=== PATIENT | male | born 1950 | race Caucasian/White ===

== ENCOUNTER 2025-08-21 12:16 | Outpatient (OUT) | payer BC, SELFPAY ==
--- OUTSIDE RECORDS SUMMARY | 2025-08-21 12:27 | XMS_ITS | Clinical Summary ---
Author Organization [facility] Healthcare Address [address] [place] [address] Care Team Providers Care Motor Runner Name Role Phone Diana Rosado MD Primary Care Provider [phone] Allergies No known active allergies Medications MedicationSigDispense QuantityRefillsLast FilledStart DateEnd DateStatus magnesium 250 MG tablet Take 1 tablet by mouth in the morning.Active Krill Oil 500 MG capsule Take 1 capsule by mouth in the morning.Active Multiple Vitamin (MULTI VITAMIN DAILY PO) Take 1 tablet by mouth in the morning and 1 tablet before bedtime.Active cholecalciferol (Vitamin D-3) 50 MCG (2000 UT) tablet Take 2,000 Units by mouth DailyActive Multiple Vitamins-Minerals (PreserVision AREDS 2) capsule 3Active Calcium Citrate-Vitamin D (CITRACAL + D PO) Take 600 mg by mouth DailyActive losartan (Cozaar) 100 MG tablet Indications:Essential hypertensionTake 1 tablet (100 mg) by mouth Daily 90 tablet 4Active hydroCHLOROthiazide (HYDRODiuril) 12.5 MG tablet Indications:Essential hypertensionTake 1 tablet (12.5 mg) by mouth Daily 100 tablet 5Active metoprolol succinate XL (Toprol-XL) 25 MG 24 hr tablet Indications:Essential hypertensionTake 1 tablet (25 mg) by mouth Daily Do not crush or chew. Take in the am 90 tablet 5Active bacitracin 500 UNIT/GM ointment Indications:Nasal soreApply topically in the morning and before bedtime. 14 g 5Active metoprolol succinate XL (Toprol XL) 50 MG 24 hr tablet Indications:Essential hypertensionTake 1 tablet (50 mg) by mouth in the evening Do not crush or chew. 90 tablet 5Active Active Problems ProblemNoted DateDiagnosed DateHistory of rectal vpzbqx4805/12/2023Family history of colon tyisgq5005/12/2023Essential rirnncueuggh08/19/2974Qjspluswawr01/19/2023 Encounters DateTypeDepartmentCare KgssQjmpgoxayxo16/29/2025Telephone [facility] [address] [place] [address] Diana Rosado MD from Last 3 Months Immunizations ImmunizationAdministration DatesNext DueInfluenza, High Dose Seasonal, Preservative Free07/31/2019,08/25/2018,08/04/2017Influenza, High-dose Seasonal, Quadrivalent, Preservative Free08/16/2023,10/02/2021Influenza, Seasonal, Quadrivalent, Wbvovlfbzv18/24/2022,07/26/2020Influenza, Split (incl. purified surface antigen)10/15/2015Influenza, Omsrowsboaa99/24/2022,10/02/2021,07/26/2020 ,07/31/2019,08/25/2018Influenza, seasonal, injectable, preservative free 07/25/2020Moderna Bivalent Booster Htzarfbsner47/30/2022neumococcal Conjugate PCV 13010/27/2018Pneumococcal Polysaccharide [id number]-GxQ-5, Akjwsxjowbb26/30/2022 Family History Medical HistoryRelationNameCommentsHypertensionMotherRelationNameStatusComments FatherDeceasedMotherAlive Social History Tobacco UseTypesPacks/DayYears UsedDateSmoking Tobacco: NeverSmokeless Tobacco: Never Tobacco Cessation:Counseling Given: Not Answered Alcohol UseStandard Drinks/WeekCommentsNever0 (1 standard drink = 0.6 oz pure alcohol)B1300 Health LiteracyAnswerDate RecordedHow often do you need to have someone help you when you read instructions, pamphlets, or other written material from your doctor or pharmacy?Never08/31/2024Humiliation, Afraid, Rape, and Kick questionnaireAnswerDate RecordedWithin the last year, have you been afraid of your partner or ex-partner?No04/05/2023Within the last year, have you been humiliated or emotionally abused in other ways by your partner or ex-partner?No04/05/2023Within the last year, have you been kicked, hit, slapped, or otherwise physically hurt by your partner or ex-partner?No04/05/2023Within the last year, have you been raped or forced to have any kind of sexual activity by your partner or ex-partner?No04/05/2023Social Connection and Isolation Panel AnswerDate RecordedIn a typical week, how many times do you talk on the phone with family, friends, or neighbors?Twice a week08/31/2024How often do you get together with friends or relatives?Once a week08/31/2024How often do you attend jehovah's witness or voodoo services?Never08/31/2024o you belong to any clubs or organizations such as jehovah's witness groups, unions, fraternal or athletic groups, or school groups?No08/31/2024How often do you attend meetings of the clubs or organizations you belong to?Never08/31/2024re you , , , , never , or living with a partner?Dyntlew7608/31/2024UDIT-C AnswerDate RecordedQ1: How often do you have a drink containing alcohol?Never 08/31/2024Q2: How many drinks containing alcohol do you have on a typical day when you are drinking?Patient does not drink08/31/2024Q3: How often do you have six or more drinks on one occasion?Never08/31/2024Overall Financial Resource Strain (CARDIA)AnswerDate RecordedHow hard is it for you to pay for the very basics like food, housing, medical care, and heating?Not hard at all08/31/2024 PHQ-2AnswerDate RecordedPatient Health Questionnaire-2 Boxuj305Finmountainstar healthcare [place] of Occupational Health - Occupational Stress QuestionnaireAnswerDate RecordedDo you feel stress - tense, restless, nervous, or anxious, or unable to sleep at night because yourmind is troubled all the time - these days?Only a otfmnj0708/31/2024Exercise Vital SignAnswerDate RecordedOn average, how many days per week do you engage in moderate to strenuous exercise (like a brisk walk)?4 days08/31/2024On average, how many minutes do you engage in exercise at this level?30 min08/31/2024Hunger Vital SignAnswerDate RecordedWithin the past 12 months, you worried that your food would run out before you got the money to buy more.Never true08/31/2024Within the past 12 months, the food you bought just didn't last and you didn't have money to get more.Never true08/31/2024RAPARE - TransportationAnswerDate RecordedIn the past 12 months, has lack of transportation kept you from medical appointments or from getting medications?No 08/31/2024In the past 12 months, has lack of transportation kept you from meetings, work, or from getting things needed for daily living?No08/31/2024 Housing Stability Vital SignAnswerDate RecordedIn the last 12 months, was there a time when you were not able to pay the mortgage or rent on time?No04/05/2023In the last 12 months, how many places have you lived?In the last 12 months, was there a time when you did not have a steady place to sleep or slept in [facility] (including now)?No04/05/2023Housing Stability Vital SignAnswerDate RecordedIn the last 12 months, was there a time when you were not able to pay the mortgage or rent on time?No08/31/2024In the past 12 months, how many times have you moved where you were living?t any time in the past 12 months, were you homeless or living in a senior living (including now)?No08/31/2024Sex and Gender InformationValueDate RecordedSex Assigned at BirthNot on fileLegal PofVgjc7601/06/2023 7:27 PM EDTGender IdentityNot on fileSexual OrientationNot on file Last Filed Vital Signs Vital SignReadingTime TakenCommentsBlood Xlwpdxkj935/76003/15/2025 2:48 PM EDT Auvww185203/15/2025 2:48 PM ELVMvzlrihivie09.7 ??C (98 ??F)03/15/2025 2:48 PM EDT Respiratory Rate--Oxygen Pnpititdks36%03/15/2025 2:48 PM EDTInhaled Oxygen Concentration--Foykdm99.5 kg (195 lb 3.2 oz)03/15/2025 2:48 PM KXTUnqupt278.2 cm (5' 7 )03/15/2025 2:48 PM EDTBody Mass Index30.57003/15/2025 2:48 PM EDT Plan of Treatment Health MaintenanceDue DateLast DoneCommentsCT Sqoxedrrlrtj1950FIT-DNA 1950FIT1950FOBT1950 0044Aixxkueqqowak1950Diabetes: Retinopathy Gnlcatsul51/15/1961Diabetes: Hemoglobin A1C/02/2025, 09/05/2024, 02/28/2024, Additional history existsInfluenza Vaccine (#1) 509/, 08/16/2023, 08/17/2022, Additional history existsDiabetes: Urine Protein Ekubkcewb23/10/830511/2446Ensodrcmnup85, 03/01/2023, 09/02/2017, Additional history existsColorectal Cancer Screening 3Pneumococcal Vaccine: 65+ BcmwiPsgetunkw18/08/2020, 10/27/2018 Procedures Procedure NamePriorityDate/TimeAssociated DiagnosisCommentsMICROALBUMIN / CREATININE URINE LOEMCGyxkjjz14/10/2025 11:14 AM EST Type 2 diabetes mellitus without complication, without long-term current use of insulin (HCC) Essential hypertension POCT GLYCATED HEMOGLOBIN, TVJWGQguzvmt72/05/2025 12:39 PM EST Type 2 diabetes mellitus without complication, without long-term current use of insulin (HCC) HIVWYVTDPKEYahdonr70/05/2023 12:00 PM EDT from Last 3 Months or Most Recently Relevant to Health Maintenance Results * Microalbumin / creatinine urine ratio (12/04/2024 11:14 AM EST)ComponentValue Ref RangeTest MethodAnalysis TimePerformed AtPathologist SignatureCREATININE, RANDOM TGXQM1182 - 320 mg/dLQUESTALBUMIN, URINE0.4See Note: mg/dLQUESTComment: Reference Range: Reference Range Not established ALBUMIN/CREATININE RATIO, RANDOM URINE5<30 mg/g creatQUESTComment: The ADA defines abnormalities in albumin excretion as follows: Albuminuria Category ?Result (mg/g creatinine) Normal to Mildly increased <30 Moderately increased ? 30-299 Severely increased > OR = 300 The ADA recommends that at least two of three specimens collected within a 3-6 month period be abnormal before considering a patient to be within a diagnostic category. Specimen (Source)Anatomical Location / LateralityCollection Method / Volume Collection TimeReceived TimeUrineUrine specimen obtained by clean catch procedure / Hylgqhj1512/04/2024 11:14 AM EST12/05/2024 1:36 PM EST Narrative [facility] - 12/06/2024 1:22 PM EST FASTING:UNKNOWN FASTING: UNKNOWN Resulting Agency Comment Performing Organization Information ?Site ID: [id number] ?Name: [facility] ?Address: [address] [place] [id number] ?Director: Allen Sosa MD Authorizing ProviderResult TypeResult Ran Rosado MDNORTHWEST KANSAS SURG[facility] URINE ORDERABLESFinal ResultPerforming OrganizationAddressCity/State/ZIP CodePhone Number [facility] * POCT glycated hemoglobin, total docked device (11/29/2024 12:39 PM EST) ComponentValueRef RangeTest MethodAnalysis TimePerformed AtPathologist SignatureHemoglobin A1C5.2Specimen (Source)Anatomical Location / Laterality Collection Method / VolumeCollection TimeReceived NmznVmjdf92/05/2025 12:39 PM EST Narrative Authorizing ProviderResult TypeResult Ran Rosado MDPOINT OF CARE TEST ENTER/EDIT ORDERABLESFinal Result * Colonoscopy (03/01/2023 12:00 PM EDT)Anatomical RegionLateralityModality EndoscopySpecimen (Source)Anatomical Location / LateralityCollection Method / VolumeCollection TimeReceived Time03/01/2023 12:00 PM EDT Narrative 03/11/2023 12:00 PM EDT PERFORMED AT [facility] LOCATION:[id number] SEE REPORT Procedure Note CONVERSION, GENERIC - 03/13/2023 PERFORMED AT [facility] LOCATION:[id number] SEE REPORT Authorizing ProviderResult TypeResult StatusJennifer D Allsop DOENDOSCOPY PROCEDURE ORDERABLESFinal Result from Last 3 Months or Most Recently Relevant to Health Maintenance Insurance Care Teams Team MemberRelationshipSpecialtyStart DateEnd Date Diana Rosado MD [address] [place] [address] [facility]
--- OUTSIDE RECORDS SUMMARY | 2025-08-21 12:27 | XMS_ITS | Clinical Summary ---
Author Organization [facility] Address [address] [place] [address] Phone Care Team Providers Care Labor Economics Professor Name Role Phone Unavailable Primary Care Provider Unavailabl e Encounters DateTypeDepartmentCare HwigJquaukremdv13/11/2025Orders Only [facility] [address] [place] [address] José Miguel Olvera, DO from Last 3 Months Social History Tobacco UseTypesPacks/DayYears UsedDateSmoking Tobacco: Never AssessedSex and Gender InformationValueDate RecordedSex Assigned at BirthNot on fileLegal Sex Male09/18/2022 1:31 PM ESTGender IdentityNot on fileSexual OrientationNot on file Plan of Treatment Not on file Procedures Procedure NamePriorityDate/TimeAssociated DiagnosisCommentsNON-[facility] HIE UA WITH CULT CHGMCkbdenr38/11/2025 1:51 PM EDT NON-[facility] HIE UA WITH CULT RFLX PBBwbtmna57/11/2025 1:51 PM EDT from Last 3 Months Results * NON-[facility] HIE UA WITH CULT RFLX SP (08/04/2025 1:51 PM EDT)ComponentValueRef RangeTest MethodAnalysis TimePerformed AtPathologist SignatureNON-UH HIE UA Spec DescClean CatchFISHER MEDSTAR GOOD SAMARITAN HOSPITALpecimen (Source)Anatomical Location / LateralityCollection Method / VolumeCollection TimeReceived Time [facility]- Urine08/04/2025 1:51 PM EDT Narrative Authorizing ProviderResult TypeResult StatusJosé Miguel Olvera DOLAB BLOOD ORDERABLES Final ResultPerforming OrganizationAddressCity/State/ZIP CodePhone Number [facility] [address] [place] [address], [place] * (ABNORMAL) NON-[facility] HIE UA WITH CULT RFLX (08/04/2025 1:51 PM EDT)ComponentValue Ref RangeTest MethodAnalysis TimePerformed AtPathologist SignatureDOSHER MEMORIAL [facility] HIE UA ColorDark-Brown(A)YellowCLEVELAND CLINIC AKRON GENERAL LODI HOSPITALComment:Microscopic readings are only performed on those samples that meet specific criteria set forth by [facility] Laboratory.NON-[facility] HIE UA ClarityEx.Turbid (A)ClearWYANDOT MEMORIAL [facility] HIE UA Spec Grav1.0091.005 - 1.030 [facility] UA pH5.55.0 - 9.0[facility] UA Protein1+(A)Negative mg/dLBLUFFTON HOSPITALE UA GlucoseNegativeNegative mg/dLWADSWORTH-RITTMAN HOSPITALE UA KetonesNegativeNegative mg/dLCRYSTAL [facility]INIC [facility] UA Bili NegativeNegative mg/dLCRYSTAL CLINIC [facility] UA Blood3+(A) Negative mg/dLWADSWORTH-RITTMAN HOSPITALE UA NitriteNegativeNegative mg/dLCRYSTAL CLINIC ORTHOP[facility] UA UrobilinogenNegativeNegative mg/dLWADSWORTH-RITTMAN HOSPITALE UA Leuk Est25 Humaira/uLNegative CD:[id number] CLINIC ORTHOPEDIC CENTER UA RBC>75(A)0 - 3 CD:[id number] CLINIC ORTHOPEDIC CENTER UA MUCOUSNegativeNegative CD:[id number] MEDICAL TRIHEALTH REHABILITATION HOSPITALpecimen (Source)Anatomical Location / LateralityCollection Method / VolumeCollection TimeReceived TimeMUSCOGEE Lab- Urine08/04/2025 1:51 PM EDT Narrative Authorizing ProviderResult TypeResult StatusJosé Miguel TALLEY BLOOD ORDERABLES Final ResultPerforming OrganizationAddressCity/State/ZIP CodePhone Number [facility] [address] [place] [address], [place] from Last 3 Months
--- NOTE | 2025-08-21 12:32 | ECG_ITS ---
[facility] Test Date: 2025-08-21 Pat Name: MARY COLLIER Department: Room: - Gender: Male Detail Assembler: : 1950 Requested By: CAROLINA SORIANO Order Number: [id number] Reading MD: LILIAN JON Measurements Intervals [place] Rate: 53 P: 41 KS: 145 QRS: 31 QRSD: 119 T: 49 QT: 425 QTc: 399 Interpretive Statements SINUS BRADYCARDIA MODERATE INTRAVENTRICULAR CONDUCTION DELAY [110+ ms QRS DURATION] No previous ECG available for comparison Electronically Signed On 08-21-2025 13:14:35 EDT by LILIAN JON
[2025-08-21 15:17] LABS: INR 1.06; Partial Thromboplastin Time 31.3 sec (22.3-36.2); Prothrombin Time 11.2 sec (9.0-11.6)
== END 2025-08-21 12:17 | disposition home or self-care (01) ==
PROVIDERS: Visit Provider Urology
DX: Z01.818 Encounter for other preprocedural examination (principal); N40.1 Benign prostatic hyperplasia with lower urinary tract symptoms
CPT/HCPCS: 85610; 85730; 93005

== ENCOUNTER 2025-08-30 12:35 | Day surgery (SDC) | payer BC, MEDICARE, SELFPAY ==
[2025-08-21 13:04] VITALS: BP 153/95; PULSE 60; TEMP 36.4; O2SAT 96; BMI 31.0
[2025-08-30] VITALS (8 sets, daily range): BP systolic 132–153; BP diastolic 72–85; PULSE 60–84; TEMP 36.4–36.6; O2SAT 92–98; BMI 30.3
--- OUTSIDE RECORDS SUMMARY | 2025-08-30 12:39 | XMS_ITS | Clinical Summary ---
Author Organization [facility] Address [address] [place] [address] Phone Care Team Providers Care Leakage Tester Name Role Phone Unavailable Primary Care Provider Unavailabl e Encounters DateTypeDepartmentCare DblhFgdxamjmotb34/11/2025Orders Only [facility] [address] [place] [address] José Miguel Olvera, DO from Last 3 Months Social History Tobacco UseTypesPacks/DayYears UsedDateSmoking Tobacco: Never AssessedSex and Gender InformationValueDate RecordedSex Assigned at BirthNot on fileLegal Sex Male09/18/2022 1:31 PM ESTGender IdentityNot on fileSexual OrientationNot on file Plan of Treatment Not on file Procedures Procedure NamePriorityDate/TimeAssociated DiagnosisCommentsNON-[facility] HIE UA WITH CULT MLHRPknapkd14/11/2025 1:51 PM EDT NON-[facility] HIE UA WITH CULT RFLX DPNhxzaub23/11/2025 1:51 PM EDT from Last 3 Months Results * NON-[facility] HIE UA WITH CULT RFLX SP (08/04/2025 1:51 PM EDT)ComponentValueRef RangeTest MethodAnalysis TimePerformed AtPathologist SignatureNON-[facility] HIE UA Spec DescClean CatchFISHER R [facility] TRAUMA CENTERpecimen (Source)Anatomical Location / LateralityCollection Method / VolumeCollection TimeReceived Time [facility] Lab- Urine08/04/2025 1:51 PM EDT Narrative Authorizing ProviderResult TypeResult StatusJosé Miguel Olvera DOLAB BLOOD ORDERABLES Final ResultPerforming OrganizationAddressCity/State/ZIP CodePhone Number [facility] [address] [place] [address], [place] * (ABNORMAL) NON-[facility] HIE UA WITH CULT RFLX (08/04/2025 1:51 PM EDT)ComponentValue Ref RangeTest MethodAnalysis TimePerformed AtPathologist SignatureCOUNTS INCLUDE 234 [facility]EDS AT THE [facility] HIE UA ColorDark-Brown(A)YellowOHIOHEALTH HARDIN MEMORIAL HOSPITALComment:Microscopic readings are only performed on those samples that meet specific criteria set forth by [facility].NON-[facility] HIE UA ClarityEx.Turbid (A)ClearMAGRUDER MEMORIAL [facility] HIE UA Spec Grav1.0091.005 - 1.030 [facility] UA pH5.55.0 - 9.0[facility] UA Protein1+(A)Negative mg/dLOHIO STATE HEALTH SYSTEME UA GlucoseNegativeNegative mg/dLKINDRED [facility] UA KetonesNegativeNegative mg/dLBRECKSVILLE VA / [facility] UA Bili NegativeNegative mg/dLBRECKSVILLE VA / [facility] UA Blood3+(A) Negative mg/dLKINDRED HOSPITAL [facility] UA NitriteNegativeNegative mg/dLBRECKSVILLE VA / [facility] UA UrobilinogenNegativeNegative mg/dLKINDRED HOSPITAL [facility]AE UA Leuk Est25 Humaira/uLNegative CD:[id number] VA / [facility] UA RBC>75(A)0 - 3 CD:[id number] VA / CRILLE [facility]OSPITAL UA MUCOUSNegativeNegative CD:[id number] HOSPITALpecimen (Source)Anatomical Location / LateralityCollection Method / VolumeCollection TimeReceived TimeHILLCREST HOSPITAL SOUTH Lab- Urine08/04/2025 1:51 PM EDT Narrative Authorizing ProviderResult TypeResult StatusJosé Miguel TALLEY BLOOD ORDERABLES Final ResultPerforming OrganizationAddressCity/State/ZIP CodePhone Number [facility] [address] [place] [address], [place] from Last 3 Months
--- OUTSIDE RECORDS SUMMARY | 2025-08-30 12:39 | XMS_ITS | Clinical Summary ---
Author Organization [facility] Healthcare Address [address] [place] [address] Care Team Providers Care Press Pipe Inspector Name Role Phone Diana Rosado MD Primary Care Provider [phone] Allergies No known active allergies Medications MedicationSigDispense QuantityRefillsLast FilledStart DateEnd DateStatus magnesium 250 MG tablet Take 1 tablet by mouth in the morning.Active Krill Oil 500 MG capsule Take 1 capsule by mouth in the morning.Active Multiple Vitamin (MULTI VITAMIN DAILY PO) Take 1 tablet by mouth in the morning and 1 tablet before bedtime.Active cholecalciferol (Vitamin D-3) 50 MCG (1999 UT) tablet Take 2,000 Units by mouth [...] Active Problems ProblemNoted DateDiagnosed DateHistory of rectal lbjyon9805/12/2023Family history of colon bdgqzp6105/12/2023Essential rlcgagjikbvu60/19/5444Vsxjttobvuo17/19/2023 Encounters DateTypeDepartmentCare KclvUkamjlzqdam31/29/2025Telephone [facility] [address] [place] [address] Diana Rosado MD from Last 3 Months Immunizations ImmunizationAdministration DatesNext DueInfluenza, High Dose Seasonal, Preservative Free07/31/2019,08/25/2018,08/04/2017Influenza, High-dose Seasonal, Quadrivalent, Preservative Free08/16/2023,10/02/2021Influenza, Seasonal, Quadrivalent, Jnfjiuefar55/24/2022,07/26/2020Influenza, Split (incl. purified surface antigen)10/15/2015Influenza, Nqaxpqoeoxw62/24/2022,10/02/2021,07/26/2020 ,07/31/2019,08/25/2018Influenza, seasonal, injectable, preservative free 07/25/2020Moderna Bivalent Booster Mjjekrdgtxo92/30/2022neumococcal Conjugate PCV 13010/27/2018Pneumococcal Polysaccharide [id number]-QdD-2, Xetcfjerjlp32/30/2022 Family History Medical HistoryRelationNameCommentsHypertensionMotherRelationNameStatusComments FatherDeceasedMotherAlive Social History [...] relatives?Once a week08/31/2024How often do you attend christian or scientology services?Never08/31/2024o you belong to any clubs or organizations such as christian groups, unions, fraternal or athletic groups, or school groups?No08/31/2024How often do you attend meetings of the clubs or organizations you belong to?Never08/31/2024re you , , , , never , or living with a partner?Mrmbhyp4508/31/2024UDIT-C AnswerDate RecordedQ1: How often do you have [...] hard at all08/31/2024 PHQ-2AnswerDate RecordedPatient Health Questionnaire-2 Psnlo719[facility] [place] of [facility] - Occupational Stress QuestionnaireAnswerDate RecordedDo you feel stress - tense, restless, nervous, or anxious, or unable to sleep at night because yourmind is troubled all the time - these days?Only a kdizqs6108/31/2024Exercise Vital SignAnswerDate RecordedOn average, how many days [...] steady place to sleep or slept in [facility] (including now)?No04/05/2023Housing Stability Vital SignAnswerDate RecordedIn the last 12 months, was there a time when you were not able to pay the mortgage or rent on time?No08/31/2024In the past 12 months, how many times have you moved where you were living?t any time in the past 12 months, were you homeless or living in a custodial (including now)?No08/31/2024Sex and Gender InformationValueDate RecordedSex Assigned at BirthNot on fileLegal EvqRchg7301/06/2023 7:27 PM EDTGender IdentityNot on fileSexual OrientationNot on file Last Filed Vital Signs Vital SignReadingTime TakenCommentsBlood Egajmrmt111/76003/15/2025 2:48 PM EDT Tjytr522303/15/2025 2:48 PM BTWZktebblayss52.7 ??C (98 ??F)03/15/2025 2:48 PM EDT Respiratory Rate--Oxygen Mrdorlnejz08%03/15/2025 2:48 PM EDTInhaled Oxygen Concentration--Zsdvmg94.5 kg (195 lb 3.2 oz)03/15/2025 2:48 PM OYNWiplsb698.2 cm (5' 7 )03/15/2025 2:48 PM EDTBody Mass Index30.57003/15/2025 2:48 PM EDT Plan of Treatment Health MaintenanceDue DateLast DoneCommentsCT Jaevothpwccl1951FIT-DNA 1950FIT1950FOBT1950 0035Bvcipiddogweu1951Diabetes: Retinopathy Zqigaaawu56/15/1961Diabetes: Hemoglobin A1C/02/2025, 09/05/2024, 02/28/2024, Additional history existsCOVID-19 Vaccine ( season)/, 07/24/2022, 07/24/2022, Additional history exists Influenza Vaccine (#1)509/, 08/16/2023, 08/17/2022, Additional history existsDiabetes: Urine Protein Kksvbzedp22/5Colonoscopy , 03/01/2023, 09/02/2017, Additional history exists Colorectal Cancer Ffelesvje86/08/2033Pneumococcal Vaccine: 65+ YearsCompleted 11/01/2019, 10/27/2018 Procedures Procedure NamePriorityDate/TimeAssociated DiagnosisCommentsMICROALBUMIN / CREATININE URINE RFTLMUikvsha23/10/2025 11:14 AM EST Type 2 diabetes mellitus without complication, without long-term current use of insulin (HCC) Essential hypertension POCT GLYCATED HEMOGLOBIN, JKJILInzkdky57/05/2025 12:39 PM EST Type 2 diabetes mellitus without complication, without long-term current use of insulin (HCC) YEXUEILFGXVSgzaqwv42/08/2023 12:00 PM EDT from Last 3 Months or Most Recently Relevant to Health Maintenance Results * Microalbumin / creatinine urine ratio (12/04/2024 11:14 AM EST)ComponentValue Ref RangeTest MethodAnalysis TimePerformed AtPathologist SignatureCREATININE, RANDOM TNSDX2978 - 320 mg/dLQUESTALBUMIN, URINE0.4See Note: mg/dLQUESTComment: Reference [...] specimen obtained by clean catch procedure / Tujaynq7012/04/2024 11:14 AM EST12/05/2024 1:36 PM EST Narrative [facility] - 12/06/2024 1:22 PM EST FASTING:UNKNOWN FASTING: UNKNOWN Resulting Agency Comment Performing Organization Information ?Site ID: [id number] ?Name: [facility] ?Address: [address] [place] [id number] ?Director: Allen Sosa MD Authorizing ProviderResult TypeResult Ran Rosado MDLAB URINE ORDERABLESFinal ResultPerforming OrganizationAddressCity/State/ZIP CodePhone Number [facility] * POCT glycated hemoglobin, total docked device (11/29/2024 12:39 PM EST) ComponentValueRef RangeTest MethodAnalysis TimePerformed AtPathologist SignatureHemoglobin A1C5.2Specimen (Source)Anatomical Location / Laterality Collection Method / VolumeCollection TimeReceived KrrbRigxu23/05/2025 12:39 PM EST Narrative Authorizing ProviderResult TypeResult StatusDiana Rosado MDPOINT OF CARE TEST ENTER/EDIT ORDERABLESFinal Result * Colonoscopy (03/01/2023 12:00 PM EDT)Anatomical RegionLateralityModality EndoscopySpecimen (Source)Anatomical Location / LateralityCollection Method / VolumeCollection TimeReceived Time03/01/2023 12:00 PM EDT Narrative 03/11/2023 12:00 PM EDT PERFORMED AT [facility] LOCATION:[id number] SEE REPORT Procedure Note CONVERSION, GENERIC - 03/13/2023 PERFORMED AT [facility] LOCATION:[id number] SEE REPORT Authorizing ProviderResult TypeResult StatusJennifer D Allsop DOENDOSCOPY PROCEDURE ORDERABLESFinal Result from Last 3 Months or Most Recently Relevant to Health Maintenance Insurance Care Teams Team MemberRelationshipSpecialtyStart DateEnd Date Diana Rosado MD [address] [place] [address] PCP - GeneralFamily Medicine02/28/24
--- OUTSIDE RECORDS SUMMARY | 2025-08-30 12:39 | XMS_ITS | Encounter Summary ---
Author Organization [facility] Address [address] [place] [address] Care Team Providers Care S Iron Worker Name Role Phone Diana Rosado MD Primary Care Provider [phone] Encounter Details DateTypeDepartmentCare Team (Latest Contact Info)Zwwikpdzppp27/08/2024Clinisync Result Encounter [facility] External Department Unsolicited Giselle Serrato DO Social History Tobacco UseTypesPacks/DayYears UsedDateSmoking Tobacco: NeverSmokeless Tobacco: NeverAlcohol UseStandard Drinks/WeekCommentsNever0 (1 standard drink = 0.6 [...] relatives?Once a week08/31/2024How often do you attend alevism or spiritism services?Never08/31/2024o you belong to any clubs or organizations such as alevism groups, unions, fraternal or athletic groups, or school groups?No08/31/2024How often do you attend meetings of the clubs or organizations you belong to?Never08/31/2024re you , , , , never , or living with a partner?Ribsqkf1208/31/2024UDIT-C AnswerDate RecordedQ1: How often do you have [...] hard at all08/31/2024 PHQ-2AnswerDate RecordedPatient Health Questionnaire-2 Nkvfv085Finhuntsman [facility] [place] of Occupational Health - Occupational Stress QuestionnaireAnswerDate RecordedDo you feel stress - tense, restless, nervous, or anxious, or unable to sleep at night because yourmind is troubled all the time - these days?Only a gxgkdr7308/31/2024Exercise Vital SignAnswerDate RecordedOn average, how many days [...] steady place to sleep or slept in ashelter (including now)?No04/05/2023Housing Stability Vital SignAnswerDate RecordedIn the last 12 months, was there a time when you were not able to pay the mortgage or rent on time?No08/31/2024In the past 12 months, how many times have you moved where you were living?t any time in the past 12 months, were you homeless or living in a half-way (including now)?No08/31/2024Sex and Gender InformationValueDate RecordedSex Assigned at BirthNot on fileLegal RbcHwvf0401/06/2023 7:27 PM EDTGender IdentityNot on fileSexual OrientationNot on filedocumented as of this encounter Functional Status * AUDIT-C ScoreAnswerDate of SfhbjibyxhKosqhu456/07/2024 10:42 AM Abimael Portillo * Q1: How often do you have a drink containing alcohol?AnswerDate of Assessment CbwconPnfoe65/07/2024 10:42 AM Lindsey Generic * Q2: How many drinks containing alcohol do you have on a typical day when you are drinking?AnswerDate of AssessmentAuthorPatient does not drink08/31/2024 10:42 AM Abimael Portillo * Q3: How often do you have six or more drinks on one occasion?AnswerDate of KpuyakywxjFozmqxTbwtk21/07/2024 10:42 AM Abimael Portillo * Over the past 2 weeks, how often have you been bothered by any of the following problems?QuestionAnswerDate of AssessmentAuthorLittle interest or pleasure in doing thingsNot at all03/15/2025 2:49 PM Martah Castro MA Feeling down, depressed, or hopelessNot at all03/15/2025 2:49 PM Martha Castro MAPatient Health Questionnaire-2 Kqdmu032 2:49 PM Martha Castro MA documented as of this encounter Plan of Treatment Not on file documented as of this encounter Procedures Procedure NamePriorityDate/TimeAssociated DiagnosisCommentsXR KNEE COMPLETE 4+ VIEWS LEFT03/01/2024 6:38 AM EDT documented in this encounter Results * XR KNEE COMPLETE 4+ VIEWS LEFT (03/01/2024 6:38 AM EDT)Anatomical Region LateralityModalityOtherSpecimen (Source)Anatomical Location / Laterality Collection Method / VolumeCollection TimeReceived Time03/01/2024 6:38 AM EDT Narrative 03/03/2024 12:38 PM EDT Exam Date/Time: 03/01/2024 06:49 EDT Reason for Exam: M25.562 G89.29 chronic pain of left knee Report IMPRESSION: NO ACUTE OSSEOUS ABNORMALITY. DEGENERATIVE CHANGES OF THE KNEE. EXAM: ??XR Knee Complete 4+ Views Left HISTORY: Knee pain TECHNIQUE: AP, lateral and oblique views of the knee obtained. COMPARISON: None available FINDINGS: No acute fracture or dislocation. Tricompartmental degenerative changes most significantly involving the patellofemoral and lateral compartments where the degenerative changes appear advanced. Small knee joint effusion. Soft tissues are within normal limits. Ordering Provider: Giselle Serrato FINAL REPORT Dictated: ??03/03/2024 12:35 pm ?James Espinoza DO Signed (Electronic Signature): ??03/03/2024 12:35 pm Signed by: ??James Espinoza DO Transcribed by: ??DP ? Technologist: ??RRB Technical Comments Radiation Dose: Ka,r in mGy = na DAP = na Procedure Note Radiology, Radiologist, - 03/03/2024 Exam Date/Time: 03/01/2024 06:49 EDT Reason for Exam: M25.562 G89.29 chronic pain of left knee Report IMPRESSION: NO ACUTE OSSEOUS ABNORMALITY. DEGENERATIVE CHANGES OF THE KNEE. EXAM: XR Knee Complete 4+ Views Left HISTORY: Knee pain TECHNIQUE: AP, lateral and oblique views of the knee obtained. COMPARISON: None available FINDINGS: No acute fracture or dislocation. Tricompartmental degenerative changesmost significantly involving the patellofemoral and lateral compartments wherethe degenerative changes appear advanced. Small knee joint effusion. Softtissues are within normal limits. Ordering Provider: Giselle Serrato FINAL REPORT Dictated: 03/03/2024 12:35 pm James Espinoza DO Signed (Electronic Signature): 03/03/2024 12:35 pm Signed by: James Espinoza DO Transcribed by: MARIN Technologist: XNEA Technical Comments Radiation Dose: Ka,r in mGy = na DAP = na Authorizing ProviderResult TypeResult StatusJennifer D Isidrosoaaron DOCLINISYNC IMAGINGFinal Result documented in this encounter Visit Diagnoses Not on filedocumented in this encounter Care Teams Team MemberRelationshipSpecialtyStart DateEnd Date Diana Rosado MD [address] [place] [address] PCP - GeneralFamily Medicine02/28/24documented as of this encounter
[2025-08-30] MEDS: LEVOFLOXACIN 500 MG/100 ML-D5W PREMIX 100 MG IV (16:03)
--- NOTE | 2025-08-30 17:41 | P.URON_ITS ---
Urology Surgery Operative Note Operative Note Procedure Date: 08/30/25 Time Out Performed: yes Pre-op Diagnosis: BPH with LUTS and gross hematuria Post-op Diagnosis: same as pre-op Procedures performed: 1. Cystoscopy. 2. Transurethral resection of the prostate. Anesthesia: GETA Primary Surgeon: Prabhu Laird Complications: None Estimated blood loss (mL): 20 Findings: Extremely large and obstructing median lobe. No evidence of bladder tumors. Specimens: Prostate chips Drains: 22 Vietnamese three-way coud? Aleman catheter in the bladder taped to traction and CBI Indications for Procedures: This gentleman has BPH with LUTS and gross hematuria. He was found to have a very large obstructing median lobe which protruded into the bladder. He is on Flomax and still symptomatic. He is desirous for a TURP. He has signed an informed consent after risks were explained. Some of these risks include bleeding, infection, anesthesia, urinary incontinence both temporary and permanent, retrograde ejaculation, erectile dysfunction and the possible need for further operations to name a few. Detailed description of Procedure: The patient was brought to the operating room and placed on the operating room table in the supine position. SCDs were placed on the lower extremities and turned on and functioning during the entire case. Timeout was done by all parties in the room. We all agreed upon the patient's identification and the planned procedures for this patient. Genn. anesthesia was then administered. The patient was then repositioned into the modified dorsal lithotomy position. All pressure points were satisfactorily padded. Genitalia were sterilely prepped and draped in usual fashion. I started by passing a 26 Vietnamese Olympus resectoscope with a standard bipolar loop electrode per urethra and into the bladder. It was actually difficult to get the scope up and over the large median lobe which coapted anteriorly and protruded into the bladder. Once I did, I was able to identify the ureteral orifices and marked these with the loop electrode. Careful endoscopy revealed no evidence of any tumors or lesions. I then started on the median lobe and uniformly resected this capacious lobe down to the bladder neck level. I then resected posteriorly from the bladder neck to the veru. The left lateral lobe was then taken down as well as the right lateral lobe and the anterior tissue. I had to use the vaporizing electrode periodically to maintain hemostasis. I also used this for some resection. The apex was then opened up carefully. The Elick evacuator was used numerous times to get all the chips out of the bladder and these were sent for permanent sections. Upon completion, with the scope at the veru, the prostatic urethra and bladder neck were now wide open. There was no bleeding. There were no chips remaining in the bladder. The scope was then removed. I then passed a 22 Vietnamese three-way coud? Aleman catheter in the bladder. It was manually irrigated with a Jose Luis syringe to verify correct placement. 30 cc of fluid was placed in the balloon. It was taped to traction and CBI was started. It irrigated to a pink color initially and then clear thereafter. The anesthetic was then reversed. He was then transferred to a [place] bed and wheeled to PACU in stable condition. Urinary Catheter Management Urinary Catheter Management 3-way Urethral: Cath placed during this visit: no
[2025-08-30] MEDS: SODIUM CHLORIDE IRRIG SOLUTION 3,000 ML 3000 ML IRR (18:38)
[2025-08-30] MEDS: SOLIFENACIN SUCCINATE 10 MG TABLET PO (18:38)
[2025-08-30] MEDS: METOPROLOL SUCCINATE 50 MG TAB.ER.24H PO (20:55)
[2025-08-30] MEDS: VITS A,C,E/LUTEIN/MINERALS 1 TABLET 1 TAB PO (20:55)
[2025-08-30] MEDS: 0.9 % SODIUM CHLORIDE 1,000 ML 80 ML IV (23:03)
[2025-08-31] VITALS: BP 134/80; PULSE 73; TEMP 36.4; O2SAT 92
[2025-08-31] MEDS: CEFAZOLIN SODIUM/DEXTROSE,ISO 1 GM/50 ML PREMIX IV ×2 (00:28→06:20)
[2025-08-31 04:06] VITALS: BP 136/73; PULSE 60; TEMP 36.4; O2SAT 93
[2025-08-31 07:58] VITALS: BP 145/72; PULSE 65; O2SAT 96
[2025-08-31] MEDS: SOLIFENACIN SUCCINATE 10 MG TABLET PO (08:41)
[2025-08-31] MEDS: METOPROLOL SUCCINATE 25 MG TAB.ER.24H PO (08:44)
[2025-08-31] MEDS: HYDROCHLOROTHIAZIDE 25 MG TABLET 12.5 MG PO (08:44)
[2025-08-31] MEDS: LOSARTAN POTASSIUM 50 MG TABLET 100 MG PO (08:44)
== END 2025-08-31 10:18 | disposition home or self-care (01) ==
LOC: SURGOUT 12:35 → MS 18:24
PROVIDERS: Visit Provider Urology
PROC: (CPT 914; principal; 2025-08-30 13:55)
DX: N40.1 Benign prostatic hyperplasia with lower urinary tract symptoms (principal); E78.5 Hyperlipidemia, unspecified; I10 Essential (primary) hypertension; R31.0 Gross hematuria; N41.1 Chronic prostatitis; I25.10 Atherosclerotic heart disease of native coronary artery without angina pectoris; Z90.49 Acquired absence of other specified parts of digestive tract; Z95.5 Presence of coronary angioplasty implant and graft; K21.9 Gastro-esophageal reflux disease without esophagitis; F41.9 Anxiety disorder, unspecified; M19.90 Unspecified osteoarthritis, unspecified site
CPT/HCPCS: 52601; 36415; 88305; 96365; J0131; J0690; J1100; J1171; J2250; J2371; J2405; J2704; J3010